=== PATIENT | female | born 1965 | race Caucasian/White ===

== ENCOUNTER 2022-09-29 12:50 | Outpatient (CLI) | payer BC | END 2022-09-29 12:51 | disposition home or self-care (01) | LOC: CSHMAMMO 12:50 | PROVIDERS: ATTEND Nurse Practitioner Family | DX: Z12.31 Encounter for screening mammogram for malignant neoplasm of breast (principal); N64.89 Other specified disorders of breast | CPT/HCPCS: 77063; 77067 ==

== ENCOUNTER 2022-10-02 07:56 | Outpatient (CLI) | payer BC | END 2022-10-02 07:57 | disposition home or self-care (01) | LOC: CSHMAMMO 07:56 | PROVIDERS: ATTEND Nurse Practitioner Family | DX: N64.89 Other specified disorders of breast (principal) | CPT/HCPCS: G0279 ==